=== PATIENT | female | born 1990 | race American Indian/Alaskan Native ===

== ENCOUNTER 2019-05-14 05:33 | Emergency (ER) | payer MEDICAID, OTHER ==
[2019-05-14 05:40] VITALS: BP 118/87
[2019-05-14] MEDS ORDERED: IBUPROFEN 800 MG TAB PO ONE (08:08)
[2019-05-14] MEDS ORDERED: TETRACAINE 0.5% OPHTH SOLN 4ML OU STA (08:08)
--- NOTE | 2019-05-14 08:13 | Emergency Department Report ---
ED Eye Problem HPI - General Chief complaint: Eye Problems Stated complaint: EYE DRYNESS, LIGHT SENSITIVITY Time Seen by Provider: 05/14/19 08:07 Source: patient Mode of arrival: Ambulatory Limitations: No Limitations - History of Present Illness Initial comments: Tressa is a 29-year-old female who presents with bilateral eye irritation and photophobia discharge after wearing decorative cosmetic eye contacts. She slept with the contacts in her eye. chief complaint: eye pain, other (discharge photophobia ) -: This morning Onset Description: awoke with symptoms Location: both eyes Place: home Eye Symptoms: burning, discharge Severity: mild - Related Data Previous Rx's Medication Instructions Recorded Last Taken Type Ciprofloxacin HCl [Ciloxan] 2 drops OP Q2H #1 bottle 05/14/19 Unknown Rx Allergies Allergy/AdvReac Type Severity Reaction Status Date / Time Sulfa (Sulfonamide Allergy Hives Verified 05/14/19 05:40 Antibiotics) ED Review of Systems ROS: Stated complaint: EYE DRYNESS, LIGHT SENSITIVITY Other details as noted in HPI Constitutional: denies: fever, malaise Eyes: eye pain, eye discharge. denies: vision change Respiratory: denies: cough, shortness of breath ED Past Medical Hx - Past Medical History Previous Medical History?: No - Surgical History Past Surgical History?: No - Social History Smoking Status: Current Every Day Smoker Substance Use Type: Alcohol - Medications Home Medications: Home Medications Medication Instructions Recorded Confirmed Last Taken Type Ciprofloxacin HCl [Ciloxan] 2 drops OP Q2H #1 bottle 05/14/19 Unknown Rx ED Physical Exam - General Limitations: No Limitations General appearance: alert, in no apparent distress - Head Head exam: Present: atraumatic, normocephalic - Eye Eye exam: Present: PERRL, EOMI. Absent: scleral icterus, conjunctival injection, nystagmus, periorbital swelling, periorbital tenderness - Expanded Eye Exam Expanded Anterior chamber: Normal Inspection: Left ED Course Vital Signs 05/14/19 05:36 Temperature 98.8 F Pulse Rate 90 Respiratory 16 Rate Blood Pressure 118/87 O2 Sat by Pulse 98 Oximetry ED Medical Decision Making - Medical Decision Making Bilateral eye irritation with discharge after wound indicative context: Differential diagnosis includes bacterial conjunctivitis versus corneal abrasion. I have prescribed antibiotic eyedrops ciprofloxacin referred to brick grader to follow-up within the next 48 hours Critical care attestation.: If time is entered above; I have spent that time in minutes in the direct care of this critically ill patient, excluding procedure time. ED Disposition Clinical Impression: Acute conjunctivitis, bilateral, Corneal abrasion of both eyes due to contact lens Disposition: [id number] TO HOME OR SELFCARE Is pt being admited?: No Does the pt Need Aspirin: No Condition: Stable Instructions: Conjunctivitis (ED), Corneal Abrasion (ED) Additional Instructions: You will need to see an eye doctor within the next 2 days. Prescriptions: Ciprofloxacin HCl [Ciloxan] 2 drops OP Q2H #1 bottle Referrals: GALINA HERRERA MD [Staff Physician] - 3-5 Days Forms: Work/School Release Form(ED)
== END 2019-05-14 08:44 | disposition home or self-care (01) ==
LOC: ED 05:33
DX: H18.823 Corneal disorder due to contact lens, bilateral (principal); H10.33 Unspecified acute conjunctivitis, bilateral; F17.200 Nicotine dependence, unspecified, uncomplicated; Z79.899 Other long term (current) drug therapy; Z88.2 Allergy status to sulfonamides